=== PATIENT | male | born 1990 | race Caucasian/White ===

== ENCOUNTER 2025-02-20 22:06 | Emergency (ER) | payer OTHER, SELFPAY ==
[2025-02-20 22:36] VITALS: BP 147/93; PULSE 74; TEMP 36.9; O2SAT 95; BMI 64.6
--- NOTE | 2025-02-20 23:15 | XR_ITS ---
[place] [id number] Patient Name: ANALY RENEE MRN: [id number] date: 1990 Sex: M Assigned Patient Location: ER Current Patient Location: ER Accession/Order Number: [id number] Exam Date: 02/20/2025 23:48 Report Date: 02/20/2025 23:49 At the request of: HILL VU MD Procedure: XR lumbar spine 2-3V 2 views Lumbar Spine HISTORY: Low back pain for 5 days COMPARISON: None POSTSURGICAL CHANGES: None BONY ALIGNMENT: Adequate HYPERMOBILITY:No bending imaging. LISTHESIS:None FRACTURE: None DEGENERATIVE CHANGES: Moderate L5-S1 disc space narrowing SOFT TISSUES: Unremarkable BONY MINERALIZATION:Adequate XR/XR lumbar spine 2-3V IMPRESSION: L5-S1 spondylosis. Impression dictated by: Paco Goode M.D. 02/20/2025 11:49 PM Dictation Location: [place] [address] Electronically authenticated by: [id number] Y Date: 02/20/2025 23:49
--- NOTE | 2025-02-20 23:16 | ED.BACK1 ---
HPI HPI - Back Pain/Injury General Chief Complaint: Back Pain/Injury Stated Complaint: LOWER BACK PAIN Time Seen by Provider: 02/20/25 22:40 Source: patient Mode of arrival: walk-in Limitations: no limitations History of Present Illness HPI Narrative: This 34-year-old male presents for evaluation of left low back pain since last . The patient states he was moving a lot of boxes prior to that. He woke up in the morning and felt very stiff. Since that time he has been having pain and spasm in the left lower lumbar region. He does not have any weakness or numbness. He has not had any loss of bowel or bladder control. He has not had any fever. He states he cannot stand up straight. He states when he first starts in the morning he he is very stiff and has trouble standing up but as the day progresses he loosens up a little bit. Related Data Home Medications ?Medication ?Instructions ?Recorded ?Confirmed dextroamphetamine-amphetamine 20 20 mg PO BID 02/20/25 02/20/25 mg tablet Allergies Allergy/AdvReac Type Severity Reaction Status Date / Time No Known Drug Allergies Allergy Verified 02/20/25 22:42 Opioid HPI Opioid Management Most Recent Opioid Data: Last Pain Scale 5 02/20/25, 22:48 Last ED Pain Assessment 02/20/25, 22:48 Review of Systems ROS Status of ROS 10 or more systems reviewed and unremarkable except as noted in history and below PFSH PFSH Social History Little interest or pleasure in doing things: not at all Feeling down, depressed, or hopeless: not at all Exam Narrative Exam Narrative: Vital signs and Nursing Notes reviewed: Patient is afebrile with a normal pulse, blood pressure is elevated at 147/93, he is not hypoxic with pulse ox of 95% on room air General: Awake, alert, oriented, nontoxic but mildly uncomfortable appearing adult male, no respiratory distress, he has difficulty getting off the stretcher due to pain in the left lumbar region HEENT: Normocephalic atraumatic, mucous membranes are moist and pink, eyes are clear, normal conjunctiva, vision is grossly intact Neck: Supple, no midline bony vertebral cervical spine tenderness Chest: Lungs are clear to auscultation with good air entry, there is no wheezing rhonchi or rales appreciated no accessory muscle use, patient is speaking in complete sentences-no chest wall tenderness to palpation CVS: Regular rate and rhythm S1-S2, no murmurs rubs or gallops, pulses are brisk and equal bilaterally ABD: Soft, nondistended, nontender, no rebound guarding or rigidity, bowel sounds are normal, no pulsatile masses appreciated Musc: There is tenderness and muscle spasm in the left lower lumbar region. No midline bony vertebral tenderness or step-off. There is no skin rash in this area. There appears to be a scoliosis however the patient states that he typically can stand up straight but due to the pain and spasm in his left low back he is not able to stand up straight. Extremities: Moving all extremities, no lower extremity tenderness or swelling noted, Skin: Normal in appearance without rash,pallor, petechiae or purpura Neuro: No focal deficits, no saddle anesthesia. Deep tendon reflexes are brisk and equal bilaterally. Constitutional Vital Signs, click to edit/add: Last Vital Signs Temp 98.5 F 02/20/25 22:36 Pulse 74 02/20/25 22:36 Resp 16 02/20/25 22:36 BP 147/93 H 02/20/25 22:36 Pulse Ox 95 02/20/25 22:36 O2 Del Method Room Air 02/20/25 22:36 Course Vital Signs Vital signs: Vital Signs Temperature 98.5 F 02/20/25 22:36 Pulse Rate 74 02/20/25 22:36 Respiratory Rate 16 02/20/25 22:36 Blood Pressure 147/93 H 02/20/25 22:36 Pulse Oximetry 95 02/20/25 22:36 Oxygen Delivery Method Room Air 02/20/25 22:36 Temperature 98.5 F 02/20/25 22:36 Pulse Rate 74 02/20/25 22:36 Respiratory Rate 16 02/20/25 22:36 Blood Pressure 147/93 H 02/20/25 22:36 Pulse Oximetry 95 02/20/25 22:36 Oxygen Delivery Method Room Air 02/20/25 22:36 MDM - Back Pain/Injury MDM Narrative Medical decision making narrative: This 34-year-old male presents for evaluation of left low back pain with muscle spasms since last after doing some heavy lifting and moving boxes the day before. He has muscle spasm and tenderness in the left lumbosacral region. He does not have any neurologic symptoms. He has not had a fever. X-ray of the region shows L5-S1 spondylosis. He was medicated emergency department with a dose of Toradol and Norflex. He appears more comfortable on reevaluation. He will be discharged home with dose of [place] to use at home tonight for pain and prescription for [place], Medrol Dosepak and Flexeril. He was encouraged to drink plenty of fluids, perform gentle stretching, use moist heat and follow-up closely with his family physician or return to the emergency department for worsening symptoms, any change in his neurologic status or any concerns. Discharge Plan Discharge Chief Complaint: Back Pain/Injury Clinical Impression: Strain of lumbar region Patient Disposition: Home, Self-Care Time of Disposition Decision: 00:03 Prescriptions / Home Meds: No Action dextroamphetamine-amphetamine 20 mg tablet 20 mg PO BID Print Language: Maltese Instructions: Low Back Strain (ED), Lower Back Exercises (ED) Referrals: Physician,Non-Staff, MD [Primary Care Provider] - 1 week
[2025-02-20] MEDS: KETOROLAC TROMETHAMINE 60 MG/2 ML VIAL IM (23:26)
[2025-02-20] MEDS: ORPHENADRINE 60 MG/2 ML VIAL IM (23:26)
[2025-02-21] MEDS: ONDANSETRON 4 MG RAPDIS TABLET SL (00:14)
[2025-02-21] MEDS: HYDROCODONE/ACET 5-325 MG TABLET PO (00:14)
== END 2025-02-21 00:17 | disposition home or self-care (01) ==
PROVIDERS: Emergency Provider Emergency Medicine
DX: S39.012A Strain of muscle, fascia and tendon of lower back, initial encounter (principal); X50.0XXA Overexertion from strenuous movement or load, initial encounter; M47.817 Spondylosis without myelopathy or radiculopathy, lumbosacral region
CPT/HCPCS: 72100; 96372; 99284; J1885; J2360; Q0162